=== PATIENT | female | born 1995 | race Caucasian/White ===

== ENCOUNTER 2022-03-22 05:46 | Inpatient (IN) ==
[2022-03-22] MEDS ORDERED: LIDOCAINE 1% LOCAL 20 ML VIAL INFIL PRN (06:19)
[2022-03-22] MEDS ORDERED: OXYTOCIN 30 UNITS/500 ML BAG IV PRN (06:19)
[2022-03-22] MEDS: LACTATED RINGER'S 1,000 ML IV PRN ×2 (06:30→10:53)
[2022-03-22 07:13] LABS: Hematocrit (blood only) 33.4 % (37.0-47.0); Hemoglobin 12.1 g/dl (12.0-16.0); Mean Corpuscular Hemoglobin 33.8 pg (25.0-34.0); Mean Corpuscular Hgb Conc 36.2 g/dL (32.0-36.0); Mean Corpuscular Volume 93.3 fL (80.0-100.0); Mean Platelet Volume 10.7 fL (9.4-12.4); Platelet Count 207 K/uL (130-400); RDW Coefficient of Variation 12.2 % (11.5-14.5); RDW Standard Deviation 42.1 fL (36.4-46.3); Red Blood Count 3.58 M/uL (4.20-5.40); White Blood Count 11.53 K/ul (4.8-10.8)
[2022-03-22] MEDS ORDERED: NALOXONE HCL 1 MG in SODIUM CHLORIDE 0.9% 1000ML 1,000 ML IV PRN (07:20)
[2022-03-22] MEDS ORDERED: fentaNYL 2MCG/ML ROPIVACAINE 1.25MG/ML 100 ML BAG EPI PRN (07:20)
[2022-03-22] MEDS ORDERED: NALBUPHINE HCL INJ 10 MG/ML AMP IV PRN (07:20)
[2022-03-22] MEDS ORDERED: diphenhydrAMINE 50 MG/ML VIAL IV PRN (07:20)
[2022-03-22] MEDS ORDERED: NALOXONE HCL 0.4 MG/1 ML VIAL/CARP IV PRN (07:20)
[2022-03-22] MEDS ORDERED: ePHEDrine sulfate 50 MG/ML AMP IV PRN (07:20)
--- NOTE | 2022-03-22 07:20 | Anesthesiology Consultation ---
Date of Service March 22, 2022 Assessment & Plan ASA ASA2 Proposed Anesthesia Anesthesia Type: Labor Epidural Risk / Benefits Reviewed With: PT / POA / Parent / Guardian, Accepts Plan and Informed Consent Obtained History Height/Weight Height: 4 ft 11 in Weight: 61.328 kg Allergies Allergy/AdvReac Type Severity Reaction Status Date / Time No Known Allergies Allergy Verified 03/22/22 06:05 Medications Home Medications Medication Instructions Recorded Confirmed Last Taken prenat.vits,jesi,dxx-[id number] 1 tab PO DAILY 05/21/21 03/22/22 03/21/22 08:00 cholecalciferol (vitamin D3) 1 tabs PO DAILY 02/03/22 03/22/22 03/21/22 08:00 ferrous sulfate 1 tab PO DAILY 02/03/22 03/22/22 03/21/22 08:00 Active Medications Generic Name Dose Route Start Last Admin Trade Name Freq PRN Reason Stop Dose Admin Lactated Ringer's 1,000 mls @ 125 mls/hr 03/22/22 06:19 03/22/22 06:30 Lr IV 03/24/22 06:18 999 mls/hr .Q8H PRN Administration L&D Protocol Protocol Past Medical History Medical History 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 +Carrier History of chicken pox SAB (spontaneous ) Exercise / Class Metabolic Activity II 4-5 Yardwork/Stairs/Walk up hill Past Family History Family History Denies family history of Ovarian cancer Breast cancer Colorectal cancer Past Surgical History Surgical History Hx of tonsillectomy [place] teeth removed Past Anesthesia History No Hx of Anesthesia Complications and No Family Hx of Anesthesia Complications History of PONV No Hx of PONV and No Hx of Motion Sickness Social History Smoking Status: Never smoker Hx Alcohol Use: No Hx Substance Use: No Review of Systems denies fever/cough/ colds/ chest pain/ SOB/ LILIA denies LILIA Physical Exam Vital Signs Last Vital Signs Temp 36.9 C 03/22/22 05:56 Pulse 85 03/22/22 07:59 Resp 20 03/22/22 05:56 BP 109/67 03/22/22 07:55 Pulse Ox 96 03/22/22 07:59 ENMT Mouth: no TMJ abnormality and no dentition abnormality Thyromental Distance: > or= 3.5 Finger Breadths Mallampati Class: II Neck neck extension not limited Respiratory normal respiratory effort; no respiratory distress Auscultation: lungs clear to auscultation bilaterally Cardiovascular Rate/Rhythm: regular rate and regular rhythm Neurologic moves all extremities Psychiatric Orientation: alert and oriented x 3 Testing Laboratory Results 03/22/22 06:46
[2022-03-22] MEDS ORDERED: ePHEDrine sulfate 50 MG/ML AMP ONE (07:22)
[2022-03-22] MEDS ORDERED: SODIUM CHLORIDE 0.9% INJ 10 ML VIAL ONE (07:23)
[2022-03-22] MEDS ORDERED: LIDOCAINE 2%/EPINEPHRINE 1:200,000 20 ML SDV ONE (07:23)
[2022-03-22] MEDS ORDERED: BUPIVACAINE 0.25% 30 ML VIAL ONE (07:23)
[2022-03-22] MEDS ORDERED: fentaNYL citrate 100 MCG/2 ML VIAL ONE (07:23)
[2022-03-22] MEDS ORDERED: fentaNYL 2MCG/ML ROPIVACAINE 1.25MG/ML 100 ML BAG EPI ONE (07:24)
--- NOTE | 2022-03-22 09:03 | History & Physical Report ---
Date of Service March 22, 2022 Assessment & Plan (1) Active labor: (2) Need for rhogam due to Rh negative mother: (3) Echogenic bowel of fetus on ultrasound: Plan - Patient admitted to labor and delivery for active labor - Patient is Rh - and received Rhogam prior to 33 wks - Patient is at 5.5/9/-1 w/ evidence of contractions, will consider oxytocin augmentation if indicated - Once contractions are progressing, will consider ROM - Will anticipate epidural as contractions arise - Labs detained in HPI Admission and Anticipated Discharge Date Admission Date: March 22, 2022 History of Present Illness Chief Complaint: Labor Primary Care Provider: [facility] Subjective: Laura is a 26 year old female currently 39 w 4 d with AQUILINO 03/25/22 determined by US #1 who presented to Labor and Delivery in labor. Bloody show at 11 PM last night, contractions started at 1 AM, patient arrived to L&D at 5 AM. Complications: Rhogam in Rh- mother, echogenic bowel on 20 wk US Reason for Induction/: Was schedule 03/24 for elective induction Movement: Yes Fluid Loss/ROM: No Bloody show/discharge: Bloody show at 11 PM External FHT and uterine monitor: Category 1, average FHT 145, good FHT variability, contractions present Last OB appointment: 03/16, regular care Continuous Improvement Facilitator Hx: LMP 06/11/21, No abn paps, No STI hx Labs: Blood Type: A- Antibody Screen: Negative Hg/Hct (today): 12.1/33.4 WBC/Plt (today): 11.53/207 Rubella: Immune RPR: Non-reactive Gonorrhea: Negative Chlamydia: Negative HIV: Negative HbSAg: Negative GBS: Negative Cff-DNA: Low risk ROS: - Denies fever, chills, sweats - Denies dyspnea or pleuritic pain - Denies chest pain, palpitations, or pressure - Denies breast pain - Denies dysuria - Denies headache or visual changes Allergies Allergy/AdvReac Type Severity Reaction Status Date / Time No Known Allergies Allergy Verified 03/22/22 06:05 Home Medications Medication Instructions Recorded Confirmed Type prenat.vits,jesi,zto-agud-jgwnl 1 tab PO DAILY 05/21/21 03/22/22 History cholecalciferol (vitamin D3) 1 tabs PO DAILY 02/03/22 03/22/22 History ferrous sulfate 1 tab PO DAILY 02/03/22 03/22/22 History Patient History Medical History 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 +Carrier History of chicken pox SAB (spontaneous ) Surgical History Hx of tonsillectomy [place] teeth removed Family History Denies family history of Ovarian cancer Breast cancer Colorectal cancer Social History (Updated 02/03/22 @ 10:56 by Jewels Matson) Smoking Status: Never smoker Hx Alcohol Use: No Hx Substance Use: No Preferred Language: Slovak Communication Ability: Effective Interline Clerk Required: No Beliefs That Will Affect Care: None marital status: marital status details: Micheal Hammond (27) [phone] Current Living Situation: Spouse Current Living Situation Comment: lives with spouse, cat-spouse changing litter current occupational status: employed current occupation: self-employed online Other Information That Helps Us Care for You: No Feels Safe at Home: No Is there a partner from a previous relationship who is making you feel unsafe now?: No Any Concerns about Your Family Situation: No Would You Like to Speak to Someone About Your Situation: No Safety Concerns: Feels Safe At This Time Physical Exam Physical Exam: General: Alert, oriented. No acute distress. Cardiac: Regular rate and rhythm, no murmurs/rubs/gallops. Respiratory: Clear to auscultation bilaterally a/p, no wheezes/rales/rhonchi. No increased work of breathing. Symmetrical chest rise. No respiratory distress. Abdomen: Gravid; reactive FHTs; Position: Vertex via Manan maneuver Pelvic: Dilation 5.5 cm; Effacement 9; Station -[address] Enriquez Lower Extremities: No lower extremity edema or swelling. No deep calf pain. Dwight's negative bilaterally. Results & Data ([facility]) Vital Signs (Past 12 Hours) Vital Signs Temp Pulse Resp BP Pulse Ox 03/22/22 05:56 36.9 C 20 03/22/22 08:49 97 03/22/22 08:49 81 03/22/22 08:44 97 03/22/22 08:44 79 03/22/22 08:43 75 02 08:43 112/73 03/22/22 08:39 96 03/22/22 08:39 79 03/22/22 08:34 97 03/22/22 08:34 89 03/22/22 08:29 97 03/22/22 08:29 77 03/22/22 08:25 86 03/22/22 08:25 127/86 03/22/22 08:24 97 03/22/22 08:24 77 03/22/22 08:22 80 03/22/22 08:22 122/85 03/22/22 08:19 97 03/22/22 08:19 83 03/22/22 08:19 84 03/22/22 08:19 122/85 03/22/22 08:16 85 03/22/22 08:16 116/81 03/22/22 08:14 95 03/22/22 08:14 96 H 03/22/22 08:13 85 03/22/22 08:13 109/81 03/22/22 08:09 97 03/22/22 08:09 95 H 03/22/22 08:10 90 03/22/22 08:10 118/77 03/22/22 08:07 87 03/22/22 08:07 115/75 03/22/22 08:04 96 03/22/22 08:04 98 H 03/22/22 08:04 114/72 03/22/22 08:01 95 H 03/22/22 08:01 117/72 03/22/22 07:59 96 03/22/22 07:59 85 03/22/22 07:55 83 03/22/22 07:55 109/67 03/22/22 07:54 97 03/22/22 07:54 84 03/22/22 07:52 82 03/22/22 07:52 112/72 03/22/22 07:49 98 03/22/22 07:49 92 H 03/22/22 07:49 85 03/22/22 07:49 117/82 03/22/22 07:46 94 H 03/22/22 07:46 116/81 03/22/22 07:44 99 03/22/22 07:44 96 H 03/22/22 07:43 106 H 03/22/22 07:43 123/81 03/22/22 07:39 100 03/22/22 07:39 99 H 03/22/22 07:40 90 03/22/22 07:40 130/80 03/22/22 06:12 88 114/78 03/22/22 05:54 99 H 142/82 H Resident Activity Tracking Resident Involvement: Resident Care Provided Care Provided: OB Delivery
--- NOTE | 2022-03-22 14:29 | Delivery Summary ---
Vaginal Delivery Summary Date of Service March 22, 2022 Vaginal Delivery Summary DIAGNOSES: 1. Ashley intrauterine at 39w4d gestation. 2. Spontaneous onset of labor. 3. Group B Streptococcus Neg 4. Rh Negative. PROCEDURE: Spontaneous vaginal delivery without laceration. SURGEON: Luly Landon MD. BEEF PUSHER: None. ESTIMATED BLOOD LOSS: 250 mL. COMPLICATIONS: None. PLACENTA: Spontaneous and intact with a 3-vessel cord. DISPOSITION: Stable to labor and delivery. DESCRIPTION: The patient pushed well and brought the head to in DOA position. The infant's head was allowed to deliver with contraction force and no further active pushing, with the perineum protected during this time. There was one tight nuchal cord. The right shoulder was anterior. The shoulders and body delivered without any difficulty, and the was placed on the maternal abdomen. It was vigorous and moving all extremities, and making respiratory efforts. The cord was doubly clamped by the MD and then cut. The placenta delivered spontaneously and was noted to be intact and with a 3VC. The cervix, vagina and perineum were examined and were found to be without defect requiring repair. The fundus was firm and lochia minimal immediately after delivery. [facility] [place] Charge Vaginal Delivery Codes: 85633 global code for the antepartum, delivery, and post-
[2022-03-22] MEDS ORDERED: BENZOCAINE 20% AER SPR 82.5 GM CAN EXT PRN (15:34)
[2022-03-22] MEDS ORDERED: HYDROCORTISONE ACETATE 25 MG SUPP PR PRN (15:34)
[2022-03-22] MEDS ORDERED: oxyCODONE/ACETAMINOPHEN 5mg/325mg TAB PO PRN (15:34)
[2022-03-22] MEDS ORDERED: DIPHTHERIA/TETANUS/PERTUSSIS 0.5mL SYR/VIAL (Age 7+yrs) IM ONE (15:34)
[2022-03-22] MEDS ORDERED: ACETAMINOPHEN 325 MG TAB PO PRN (15:34)
--- NOTE | 2022-03-22 15:52 | Anesthesia Procedure Note ---
Date of Service March 22, 2022 Anesthesia Post Epidural Note Vital Signs Vital Signs: Temp Pulse Resp BP Pulse Ox 37.0 C 82 16 112/70 90 03/22/22 12:41 03/22/22 15:50 03/22/22 12:41 03/22/22 15:50 03/22/22 14:11 Notes Mental Status: alert / awake / arousable and participated in evaluation Nausea / Vomiting: adequately controlled Pain: adequately controlled Airway Patency, RR, SpO2: stable & adequate BP & HR: stable & adequate Hydration State: stable & adequate
[2022-03-22] MEDS: DOCUSATE SODIUM 100 MG CAP PO SCH (20:48)
[2022-03-22] MEDS: IBUPROFEN 600 MG TAB PO PRN (23:54)
[2022-03-23] MEDS: IBUPROFEN 600 MG TAB PO PRN ×3 (04:00→19:46)
--- NOTE | 2022-03-23 05:10 | Obstetrical Progress Note ---
Date of Service March 23, 2022 Assessment & Plan (1) Need for rhogam due to Rh negative mother: (2) care following vaginal delivery: Plan - Overall, feeling well and eating well today - Infant feeding going well without concern - Urinating and passing gas appropriately - Ambulating well in room - Pain controlled w/ Ibuprofen - Hgb 12.1 on 03/22 - Vitals stable and wnl - Rh negative mom, Rh negative baby - Routine PP care progressing well - Anticipate discharge @ 24-48 hours PP - Recommending f/u outpatient in 6 weeks Admission and Anticipated Discharge Date Admission Date: March 22, 2022 Subjective Patient is a 26F who is PPD # 1 following delivery at 39 4/7. She reports feeling well overall this morning. - Ambulation - well throughout room - Voiding/Thurman - independent voids, no dysuria or pressure - Gas/Stool - passing gas, no bowel movement - Diet - regular, no nausea or emesis - Lochia - diminishing, moderate amount - Feeding Type - breast feeding - Pain Level - 2/10, controlled with Ibuprofen Review of Systems - Denies fever, chills, sweats - Denies shortness of breath, difficulty breathing, chest pain, palpitations, chest pressure. - Denies breast pain. - Denies dysuria. - Denies headache or changes in vision. Physical Exam Physical Exam: General: Alert, oriented. No acute distress. Cardiac: RRR, normal S1/S2, no murmurs/rubs/gallops. Respiratory: Non-labored, CTAB, no wheezes/rales/rhonchi. Symmetric chest rise. Abdomen: Soft, nontender, nondistended. Bowel sounds present. Uterus: Uterine fundus firm, palpable 2 cm below umbilicus. Lower Extremities: No lower extremity edema or swelling. No deep calf pain. Dwight's negative bilaterally. Results & Data ([facility]) Vital Signs (Past 12 Hours) Vital Signs Temp Pulse Resp BP Pulse Ox O2 Del Method 03/23/22 03:00 37 C 89 18 102/68 96 Room Air 03/22/22 23:50 36.9 C 79 18 123/82 98 Room Air 03/22/22 20:20 37.2 C 94 H 18 102/68 96 Room Air 03/22/22 17:35 37.2 C 96 H 20 102/69 97 Room Air Resident Activity Tracking Resident Involvement: Resident Care Provided Care Provided: OB Delivery
--- NOTE | 2022-03-23 06:09 | Obstetrical Progress Note ---
Date of Service March 23, 2022 Assessment & Plan (1) Need for rhogam due to Rh negative mother: (2) care following vaginal delivery: Plan - Overall, feeling well and eating well today - Infant feeding going well without concern - Urinating and passing gas appropriately - Ambulating well in room - Pain controlled w/ Ibuprofen - Hgb 12.1 on 03/22 - Vitals stable and wnl - Rh negative mom, Rh negative baby - Routine PP care progressing well - Anticipate discharge @ 24-48 hours PP - Recommending f/u outpatient in 6 weeks Admission and Anticipated Discharge Date Admission Date: March 22, 2022 Subjective Patient is a 26F who is PPD # 1 following delivery at 39 4/7. She reports feeling well overall this morning. - Ambulation - well throughout room - Voiding/Thurman - independent voids, no dysuria or pressure - Gas/Stool - passing gas, no bowel movement - Diet - regular, no nausea or emesis - Lochia - diminishing, moderate amount - Feeding Type - breast feeding - Pain Level - 2/10, controlled with Ibuprofen Review of Systems - Denies fever, chills, sweats - Denies shortness of breath, difficulty breathing, chest pain, palpitations, chest pressure. - Denies breast pain. - Denies dysuria. - Denies headache or changes in vision. Physical Exam Physical Exam: General: Alert, oriented. No acute distress. Cardiac: RRR, normal S1/S2, no murmurs/rubs/gallops. Respiratory: Non-labored, CTAB, no wheezes/rales/rhonchi. Symmetric chest rise. Abdomen: Soft, nontender, nondistended. Bowel sounds present. Uterus: Uterine fundus firm, palpable 2 cm below umbilicus. Lower Extremities: No lower extremity edema or swelling. No deep calf pain. Dwight's negative bilaterally. Results & Data ([facility]) Vital Signs (Past 12 Hours) Vital Signs Temp Pulse Resp BP Pulse Ox O2 Del Method 03/23/22 03:00 37 C 89 18 102/68 96 Room Air 03/22/22 23:50 36.9 C 79 18 123/82 98 Room Air 03/22/22 20:20 37.2 C 94 H 18 102/68 96 Room Air
[2022-03-23 06:51] LABS: Hematocrit (blood only) 29.5 % (37.0-47.0); Hemoglobin 10.5 g/dl (12.0-16.0); Mean Corpuscular Hemoglobin 32.8 pg (25.0-34.0); Mean Corpuscular Hgb Conc 35.6 g/dL (32.0-36.0); Mean Corpuscular Volume 92.2 fL (80.0-100.0); Mean Platelet Volume 10.8 fL (9.4-12.4); Platelet Count 190 K/uL (130-400); RDW Coefficient of Variation 12.4 % (11.5-14.5); RDW Standard Deviation 41.9 fL (36.4-46.3); White Blood Count 12.57 K/ul (4.8-10.8)
[2022-03-23] MEDS: PRENATAL VITAMIN 1 TAB PO SCH (09:08)
[2022-03-23] MEDS: DOCUSATE SODIUM 100 MG CAP PO SCH ×2 (09:08→19:45)
--- NOTE | 2022-03-24 05:33 | Obstetrical Progress Note ---
Date of Service March 24, 2022 Assessment & Plan (1) Need for rhogam due to Rh negative mother: (2) care following vaginal delivery: Plan - Overall, feeling well and eating well today - feeding going well without concern - Urinating and passing gas appropriately - Ambulating well in room - Pain controlled w/ Ibuprofen - Hgb 10.5 on 03/23 - Vitals stable and wnl - Rh negative mom, Rh negative baby, no need for Rhogam PP - Routine PP care progressing well - Anticipate discharge @ 24-48 hours PP - Discharge instructions discussed - Recommending f/u outpatient in 6 weeks Admission and Anticipated Discharge Date Admission Date: March 22, 2022 Subjective Patient is a 26F who is PPD # 2 following delivery at 39 4/7. She reports feeling well overall this morning. - Ambulation - well throughout room - Voiding/Thurman - independent voids, no dysuria or pressure - Gas/Stool - passing gas, no bowel movement - Diet - regular, no nausea or emesis - Lochia - diminishing, light amount - Feeding Type - breast feeding - Pain Level - 1/10, controlled with Ibuprofen Review of Systems - Denies fever, chills, sweats - Denies shortness of breath, difficulty breathing, chest pain, palpitations, chest pressure. - Denies breast pain. - Denies dysuria. - Denies headache or changes in vision. Physical Exam Physical Exam: General: Alert, oriented. No acute distress. Cardiac: RRR, normal S1/S2, no murmurs/rubs/gallops. Respiratory: Non-labored, CTAB, no wheezes/rales/rhonchi. Symmetric chest rise. Abdomen: Soft, nontender, nondistended. Bowel sounds present. Uterus: Uterine fundus firm, palpable 2 cm below umbilicus. Lower Extremities: No lower extremity edema or swelling. No deep calf pain. Dwight's negative bilaterally. Results & Data ([facility]) Vital Signs (Past 12 Hours) Vital Signs Temp Pulse Resp BP O2 Del Method 03/24/22 01:20 36.8 C 84 18 126/74 Room Air 03/23/22 19:40 37.0 C 90 18 115/78 Room Air Resident Activity Tracking Resident Involvement: Resident Care Provided Care Provided: OB Delivery
[2022-03-24 06:21] LABS: Hemoglobin 10.2 g/dl (12.0-16.0)
[2022-03-24] MEDS: DOCUSATE SODIUM 100 MG CAP PO SCH (08:20)
[2022-03-24] MEDS: PRENATAL VITAMIN 1 TAB PO SCH (08:20)
== END 2022-03-24 12:00 | disposition home or self-care (01) | DRG 807 ==
LOC: OPB 05:46 → 4S1 05:48 → 4E2 17:35